=== PATIENT | male | born 1960 | race Caucasian/White ===

== ENCOUNTER 2022-12-17 15:01 | Emergency (ER) | payer MEDICARE, SELFPAY ==
--- NOTE | ~2022-12-17 | XR_ITS ---
EXAMINATION: XR chest 2V DATE: 12/17/2022 16:02 INDICATION: Cough. TECHNIQUE: Frontal and lateral views of the chest were obtained on 4 radiographs. COMPARISON: None. FINDINGS: There is no pneumonia, pleural effusion, or pneumothorax. The heart size is normal. IMPRESSION: 1. No acute cardiopulmonary disease. Reviewed, dictated and finalized at location E.
[2022-12-17 15:10] VITALS: BP 106/64; PULSE 65; RESP 20; TEMP 36.7; O2SAT 100
--- NOTE | 2022-12-17 16:11 | ED.GENADULT ---
HPI - General Adult General Chief complaint: Headache Stated complaint: headache,nausea Source: patient Mode of arrival: ambulatory Limitations: no limitations History of Present Illness HPI narrative: Patient presents for evaluation of sick symptoms for last 1-2 weeks. He reports a frontal headache that he describes as throbbing, rated 4/10 severity. He also has a sore throat and productive cough of yellow sputum. Reports associated shortness of breath and some diarrhea. No fever, chills, chest pain, vomiting. Several family members recently had symptoms that his daughter describes as viral in nature. Daughter in on the phone during patient's exam with his permission. He has tried NyQuil without considerable improvement in his symptoms or after. He typically smokes 1 pack per day but states he is currently smoking about a quarter pack per day as result of the severity of his symptoms. Related Data Home Medications Medication Instructions Recorded Confirmed alprazolam 1 mg tablet mg 12/17/22 carbidopa 25 mg tablet mg 12/17/22 carbidopa 25 mg-levodopa 100 mg tablet 12/17/22 tablet hydrocodone 5 mg-acetaminophen 325 tablet 12/17/22 mg tablet sertraline 100 mg tablet mg 12/17/22 tapentadol 100 mg tablet (Nucynta) mg PO 12/17/22 venlafaxine 37.5 mg mg PO 12/17/22 capsule,extended release 24 hr zolpidem 10 mg tablet mg 12/17/22 Allergies Allergy/AdvReac Type Severity Reaction Status Date / Time No Known Allergies Allergy Verified 12/17/22 15:23 Review of Systems Review of Systems: CONSTITUTIONAL: Reports fatigue. denies fever, chills, or sweats. EYES: Denies visual changes, redness, or discharge. ENT: Reports sinus congestion sore throat. Denies otalgia. CARDIOVASCULAR: Denies chest pain, palpitations, or edema. RESPIRATORY: Reports productive cough of yellow sputum with associated shortness of breath. GASTROINTESTINAL: Reports diarrhea. denies abdominal pain, nausea, vomiting GENITOURINARY: Denies dysuria or hematuria. SKIN: Denies rash or itching. MUSCULOSKELETAL: Reports generalized body aches. NEUROLOGIC: Denies headache, numbness, dizziness, or weakness. PSYCHIATRIC: Denies anxiety or depression. [facility] Past Medical History Medical History (Updated 12/17/22 @ 16:19 by Dax Thompson, PRODUCTION MAINTENANCE TECHNICIAN, ) Parkinsons Surgical History Surgical History No pertinent past surgical history Family History Family History Mother Family history non-contributory Social History Social History Smoking packs per day: 1 Smoking cigarettes per day: 20.0 Smoking status: Current every day smoker Substance use: never Living arrangements: with family Gender identity (if verbalized by the patient): Male Sexual Orientation (if Verbalized by the Patient): Straight or Heterosexual Spiritual care concerns: No Exam Narrative: GENERAL: Well-appearing, well-nourished, and in no acute distress. HEAD: Normocephalic, atraumatic. EYES: PERRLA and EOMI. ENT: Nares clear, no rhinorrhea or epistaxis. Mucous membranes moist. Oropharynx without tonsillar hypertrophy exudate or other lesions. Bilateral TMs pearly barrientos nonbulging NECK: Supple. No adenopathy or masses. No carotid bruits or JVD CHEST: Cough present on exam. Wheezing noted in bilateral upper lobes posteriorly HEART: Regular rate and rhythm. No murmur heard. Normal peripheral pulses. ABDOMEN: Soft, nontender, nondistended, normal active bowel sounds. EXTREMITIES: Normal range of motion. No edema. SKIN: Warm, dry, no rash. NEURO: No focal deficits. Alert and oriented x3. PSYCH: Normal mood and affect. Course Course Emergency Course: This is a 62-year-old male who presented for evaluation of sick symptoms. Influenza and strep were negative. C
== END 2022-12-17 16:29 | disposition home or self-care (01) ==
PROVIDERS: Emergency Provider Nurse Practitioner
DX: U07.1 COVID-19 (principal); F17.210 Nicotine dependence, cigarettes, uncomplicated; G20 Parkinson's disease
CPT/HCPCS: 71046; 87081; 87426; 87804; 87880; 99213; C9803; G0463

== ENCOUNTER 2024-01-19 13:00 | Emergency (ER) | payer MEDICARE, SELFPAY ==
--- NOTE | ~2024-01-19 | XR_ITS ---
EXAMINATION: XR ankle RT min 3V DATE: 01/19/2024 13:36 INDICATION: Inversion injury with lateral right ankle pain. TECHNIQUE: Anteroposterior, oblique, mortise, and lateral views of the right ankle were obtained. COMPARISON: None. FINDINGS: Alignment is normal. No fracture. Joint spaces are normal. Enthesopathic ossification at the distal A chilles tendon and proximal plantar aponeurosis. Small heterotopic ossicles near the tips of the medi al and lateral malleoli which could also be related to chronic enthesopathy or sequela of old trauma. Minimal soft tissue swelling about the tip of the lateral malleolus. No ankle joint effusion. IMPRESSION: 1. No acute osseous abnormality. Reviewed, dictated and finalized at location A.
--- NOTE | 2024-01-19 13:24 | ED.GENADULT ---
HPI - General Adult General Chief complaint: Extremity Injury, Lower Stated complaint: RT ankle Pain Time Seen by Provider: 01/19/24 13:42 Source: patient, RN notes reviewed and old records reviewed Mode of arrival: ambulatory Limitations: no limitations History of Present Illness HPI narrative: 63-year-old male to [facility] complaint right lateral ankle pain for 1 day , worse with activity. Patient states that while walking his dog down a decline yesterday he lost his footing and did the splits, causing his right ankle to fooled underneath him. Patient states that he attempted to treat at home with ice and elevation without relief. Patient has continued to ambulate with slow steady gait. Patient denies prior history of injury, numbness, tingling, weakness, allergies, pertinent medical history. Patient sitting in exam room uncomfortably. Respirations even and nonlabored. Patient in no acute distress. Related Data Home Medications Medication Instructions Recorded Confirmed alprazolam 1 mg tablet mg 12/17/22 carbidopa 25 mg tablet mg 12/17/22 carbidopa 25 mg-levodopa 100 mg tablet 12/17/22 tablet hydrocodone 5 mg-acetaminophen 325 tablet 12/17/22 mg tablet sertraline 100 mg tablet mg 12/17/22 tapentadol 100 mg tablet (Nucynta) mg PO 12/17/22 venlafaxine 37.5 mg mg PO 12/17/22 capsule,extended release 24 hr zolpidem 10 mg tablet mg 12/17/22 Allergies Allergy/AdvReac Type Severity Reaction Status Date / Time No Known Allergies Allergy Verified 12/17/22 15:23 Review of Systems Review of Systems: All systems reviewed & are unremarkable except as noted in HPI and below Constitutional: Constitutional: Reports no additional constitutional complaints Eyes: Eyes: Reports no additional eye complaints ENT: Reports system reviewed and no additional complaints, except as documented Cardiovascular: Cardiovascular: Reports no additional cardiovascular complaints, Denies chest pain and Denies dyspnea Respiratory: Respiratory: Reports no additional respiratory complaints, Denies cough and Denies dyspnea Musculoskeletal: Musculoskeletal: Reports as per HPI, Reports arthralgias and Reports joint swelling Comments: right ankle Neurologic: Reports system reviewed and no additional complaints, except as documented Psychiatric: Psychiatric: Reports no additional psychiatric complaints PMFSH Past Medical History Medical History Parkinsons Surgical History Surgical History No pertinent past surgical history Family History Family History Mother Family history non-contributory Social History Social History Smoking packs per day: 1 Smoking cigarettes per day: 20.0 Smoking status: Current every day smoker Substance use: never Living arrangements: with family Gender identity (if verbalized by the patient): Male Sexual Orientation (if Verbalized by the Patient): Straight or Heterosexual Spiritual care concerns: No Comments At the time of my signature, I reviewed and agree with the nursing past medical, surgical, social, and family history. There is no relevant family history pertinent to the patient complaint. Exam Const: General: cooperative, no acute distress, alert, ill appearing chronically, uncomfortable and well nourished Nutritional Appearance: well nourished Orientation/consciousness: patient oriented x3 Limitations: no limitations HENMT: Head: normal to inspection Ears: external ears normal Face/Nose/Sinus: Normal external nose present, Normal nares present, normal facial exam, No erythema and No edema Face and sinus: normal facial exam, no erythema and no edema Mouth: Yes Normal oral and palatal mucosa present Eyes: General
[2024-01-19 13:25] VITALS: BP 103/57; PULSE 64; RESP 20; TEMP 37.2; O2SAT 99
== END 2024-01-19 14:46 | disposition home or self-care (01) ==
PROVIDERS: Emergency Provider Nurse Practitioner Family
DX: S93.401A Sprain of unspecified ligament of right ankle, initial encounter (principal); S96.911A Strain of unspecified muscle and tendon at ankle and foot level, right foot, initial encounter; W01.0XXA Fall on same level from slipping, tripping and stumbling without subsequent striking against object, initial encounter; Y93.K1 Activity, walking an animal; G20.A1 Parkinson's disease without dyskinesia, without mention of fluctuations; F17.210 Nicotine dependence, cigarettes, uncomplicated
CPT/HCPCS: 73610; 99213; G0463